=== PATIENT | male | born 1985 | race Caucasian/White ===

== ENCOUNTER 2018-12-05 13:21 | Emergency (ER) | payer BC ==
[2018-12-05] MEDS ORDERED: HYDROCODONE/ACETAMINOPHEN 5-325 MG TABLET PO ONE (15:16)
--- NOTE | 2018-12-05 15:17 | ER Document Report ---
HPI - HPI Time Seen by Provider: 12/05/18 15:12 Pain Level: 3 Notes: Patient is a 33-year-old male presented to the emergency department with complaints of dental pain. Patient reports long-standing history of dental infections due to multiple cavities. Patient reports he has been unable to get his dental issues taking care of according to him over $20,000 to fix it. - REPRODUCTIVE Reproductive: DENIES: : Past Medical History - General Information source: Patient - Social History Smoking Status: Never Smoker Frequency of alcohol use: None Drug Abuse: None Family History: Reviewed & Not Pertinent - Medical History Medical History: Negative Past Surgical History: Reports: Hx Oral Surgery - Immunizations Hx Diphtheria, Pertussis, Tetanus Vaccination: Yes Vertical Provider Document - CONSTITUTIONAL Notes: PHYSICAL EXAMINATION: GENERAL: Well-appearing, well-nourished and in no acute distress. HEAD: Atraumatic, normocephalic. EYES: Pupils equal round extraocular movements intact, conjunctiva are normal. ENT: Nares patent, poor dentition noted throughout, inflamed gums, no drainable abscess identified. NECK: Normal range of motion LUNGS: No respiratory distress Musculoskeletal: Normal range of motion NEUROLOGICAL: Normal speech, normal gait. PSYCH: Normal mood, normal affect. SKIN: Warm, Dry, normal turgor, no rashes or lesions noted. - INFECTION CONTROL TRAVEL OUTSIDE OF THE [place] IN LAST 30 DAYS: No Course - Re-evaluation Re-evalutation: Patient reports that he has been several months since he has been on a course of antibiotics for his dental pain recurrent dental infections. We will start him on a course of clindamycin due to multiple areas of erythema and increased pain. No drainable abscess was identified. Patient encouraged [facility]. - Vital Signs Vital signs: Temp Pulse Resp BP Pulse Ox 98.5 F 125 H 16 152/113 H 98 12/05/18 13:38 12/05/18 13:38 12/05/18 13:38 12/05/18 13:38 12/05/18 13:38 Discharge - Discharge Clinical Impression: Pain, dental Condition: Stable Disposition: HOME, SELF-CARE Additional Instructions: You have been seen for dental pain. It is very important that you follow-up with a dentist for definitive care. Please return if you develop fever greater than 101, swelling in your face, vomiting, difficulty breathing or swallowing, or any other symptoms that are concerning to you. For pain you should take ibuprofen 800 mg every 8 hours as needed. [facility] [phone] Prescriptions: Clindamycin HCl 300 mg PO TID #30 capsule
[2018-12-05 15:22] VITALS: BP 152/109
== END 2018-12-05 15:25 | disposition home or self-care (01) ==
LOC: ER 13:21
DX: K08.89 Other specified disorders of teeth and supporting structures (principal); K05.10 Chronic gingivitis, plaque induced
CPT/HCPCS: 99282

== ENCOUNTER 2018-12-06 15:59 | Emergency (ER) | payer BC ==
--- NOTE | 2018-12-06 16:12 | ER Document Report ---
ED Medical Screen (RME) - General Chief Complaint: Toothache Stated Complaint: FACIAL SWELLING Time Seen by Provider: 12/06/18 16:06 Mode of Arrival: Ambulatory Information source: Patient Notes: Patient returns today with left side pain. Reports he was treated for dental pain yesterday with clindamycin. He took 4 doses. Today the left side of his face is swollen. Pt reports swelling under chin. denies fever. I have greeted and performed a rapid initial assessment of this patient. A comprehensive ED assessment and evaluation of the patient, analysis of test results and completion of the medical decision making process will be conducted by additional ED providers. Dictation of this chart was performed using voice recognition software; therefore, there may be some unintended grammatical errors. TRAVEL OUTSIDE OF THE [place] IN LAST 30 DAYS: No - Related Data Allergies/Adverse Reactions: azithromycin [From Zithromax] Allergy (Verified 12/06/18 16:00) codeine [Codeine] Allergy (Verified 12/06/18 16:00) Penicillins Allergy (Verified 12/06/18 16:00) Past Medical History - Social History Chew tobacco use (# tins/day): No Frequency of alcohol use: None Drug Abuse: None Renal/ Medical History: Denies: Hx Peritoneal Dialysis Past Surgical History: Reports: Hx Oral Surgery - wisdom and tooth extraction - Immunizations Hx Diphtheria, Pertussis, Tetanus Vaccination: Yes Physical Exam - Vital signs Vitals: Temp Pulse Resp BP Pulse Ox 98.3 F 131 H 18 152/99 H 96 12/06/18 16:02 12/06/18 16:02 12/06/18 16:02 12/06/18 16:02 12/06/18 16:02 Course - Vital Signs Vital signs: Temp Pulse Resp BP Pulse Ox 98.3 F 131 H 18 152/99 H 96 12/06/18 16:02 12/06/18 16:02 12/06/18 16:02 12/06/18 16:02 12/06/18 16:02
[2018-12-06 16:33] LABS: ABSOLUTE BASOPHILS # (AUTO) 0.1 10^3/uL (0.0-0.2); ABSOLUTE EOSINOPHILS # (AUTO) 0.7 10^3/uL (0.0-0.6); ABSOLUTE MONOCYTES (AUTO) 0.7 10^3/uL (0.1-1.4); ABSOLUTE NEUT (AUTO) 9.3 10^3/uL (1.7-8.2); BASOPHILS % (AUTO) 0.5 % (0-2); EOSINOPHILS % (AUTO) 4.8 % (0-6); HEMATOCRIT 49.1 % (37.9-51.0); HEMOGLOBIN 16.5 g/dL (13.5-17.0); LYMPHOCYTES % (AUTO) 26.9 % (13-45); MEAN CORPUSCULAR HEMOGLOBIN 29.3 pg (27.0-33.4); MEAN CORPUSCULAR HGB CONC 33.7 g/dL (32.0-36.0); MEAN CORPUSCULAR VOLUME 87 fl (80-97); MONOCYTES % (AUTO) 4.7 % (3-13); PLATELET COUNT 263 10^3/uL (150-450); RED BLOOD COUNT 5.65 10^6/uL (4.35-5.55); RED CELL DISTRIBUTION WIDTH 14.1 % (11.5-14.0); SEGMENTED NEUTROPHILS % (AUTO) 63.1 % (42-78); TOTAL CELLS COUNTED % (AUTO) 100 %; WHITE BLOOD COUNT 14.8 10^3/uL (4.0-10.5)
[2018-12-06 16:47] LABS: ALANINE AMINOTRANSFERASE 23 U/L (21-72); ALBUMIN 4.5 g/dL (3.5-5.0); ALKALINE PHOSPHATASE 63 U/L (38-126); ANION GAP 11 (5-19); ASPARTATE AMINO TRANSFERASE 18 U/L (17-59); BILIRUBIN,DIRECT 0.3 mg/dL (0.0-0.4); BILIRUBIN,TOTAL 0.8 mg/dL (0.2-1.3); BLOOD UREA NITROGEN 8 mg/dL (7-20); CALCIUM 9.8 mg/dL (8.4-10.2); CARBON DIOXIDE 23 mmol/L (22-30); CHLORIDE 107 mmol/L (98-107); GLUCOSE 148 mg/dL (75-110); POTASSIUM 4.4 mmol/L (3.6-5.0); SODIUM 140.6 mmol/L (137-145); TOTAL PROTEIN 7.6 g/dL (6.3-8.2)
--- NOTE | 2018-12-06 17:30 | ER Document Report ---
ED General - General Mode of Arrival: Ambulatory TRAVEL OUTSIDE OF THE [place] IN LAST 30 DAYS: No <ROSA HANEY - Last Filed: 12/06/18 19:28> <ABBEY VALENTE - Last Filed: 12/08/18 00:07> - General Chief Complaint: Toothache Stated Complaint: FACIAL SWELLING Time Seen by Provider: 12/06/18 16:06 Notes: 33-year-old male presents to the emergency department for significant left-sided facial swelling. Patient was seen here yesterday for dental pain but did not have any facial or jaw swelling. Patient was placed on clindamycin p.o. and has taken 4 doses since being discharged yesterday. He woke up this morning to significant swelling and his mother brought him into the emergency department. He complains of significant pain of the cheek and of his gumline. Patient denies fevers or chills, is significantly tachycardic at 132. Patient is able to open his mouth and there is no evidence of airway obstruction. Patient is able to move his neck, no tongue swelling. (ROSA HANEY) - Related Data Allergies/Adverse Reactions: acetaminophen [From Percocet] Allergy (Verified 12/06/18 21:05) VOMITING azithromycin [From Zithromax] Allergy (Verified 12/06/18 16:00) codeine [Codeine] Allergy (Verified 12/06/18 16:00) oxycodone [From Percocet] Allergy (Verified 12/06/18 21:05) VOMITING Penicillins Allergy (Verified 12/06/18 16:00) Past Medical History - General Information source: Patient - Social History Smoking Status: Current Every Day Smoker Chew tobacco use (# tins/day): No Frequency of alcohol use: None Drug Abuse: None Family History: Reviewed & Not Pertinent Patient has suicidal ideation: No Patient has homicidal ideation: No Renal/ Medical History: Denies: Hx Peritoneal Dialysis Past Surgical History: Reports: Hx Oral Surgery - wisdom and tooth extraction - Immunizations Hx Diphtheria, Pertussis, Tetanus Vaccination: Yes <ROSA HANEY - Last Filed: 12/06/18 19:28> Review of Systems - Review of Systems Constitutional: See HPI EENT: See HPI Cardiovascular: No symptoms reported Respiratory: No symptoms reported Gastrointestinal: No symptoms reported Genitourinary: No symptoms reported Male Genitourinary: No symptoms reported Musculoskeletal: No symptoms reported Skin: No symptoms reported Hematologic/Lymphatic: No symptoms reported Neurological/Psychological: See HPI <ROSA HANEY - Last Filed: 12/06/18 19:28> Physical Exam <ROSA HANEY - Last Filed: 12/06/18 19:28> - Vital signs Vitals: Temp Pulse Resp BP Pulse Ox 98.3 F 131 H 18 152/99 H 96 12/06/18 16:02 12/06/18 16:02 12/06/18 16:02 12/06/18 16:02 12/06/18 16:02 - Notes Notes: PHYSICAL EXAMINATION: Reviewed vital signs and charting by RN GENERAL: Alert, interacts well. No acute distress. HEAD: Normocephalic, atraumatic. EYES: Pupils equal and round. Extraocular movements intact. ENT: Oral mucosa moist, tongue midline. Significant left-sided facial swelling of the jaw that extends into the cheek in the infraorbital area, no eye entrapment, no purulent discharge inside the mouth, patient is able to open his mouth. NECK: Full range of motion. Trachea midline. LUNGS: Clear to auscultation bilaterally, no wheezes, rales, or rhonchi. No respiratory distress. HEART: Regular rate and rhythm. No murmur ABDOMEN: soft, non-tender. No distention. Bowel sounds present EXTREMITIES: Moves all 4 extremities spontaneously. No edema, No cyanosis. PSYCH: Normal affect, normal mood. SKIN: Warm, dry, normal turgor. No rashes or lesions noted. (ROSA HANEY) Course - Laboratory Result Diagrams: 12/06/18 16:15 12/06/18 16:15 <ROSA HANEY - Last Filed: 12/06/18 19:28> - Laboratory Result Diagrams: 12/06/18 16:15 12/06/18 16:15 - Diagnostic Test Radiology reviewed: Image reviewed, Reports reviewed <ABBEY VALENTE - Last Filed: 12/08/18 00:07> - Re-evaluation Re-evalutation: 12/06/18 17:30 Overall well-appearing, afebrile, tachycardic. Leukocytosis of 14,800. CT soft tissue neck ordered. Plan is to give him in IV dose of clindamycin. 12/06/18 17:30 12/06/18 19:21 CT soft tissue face and ordered that show diffuse left-sided facial cellulitis, a subperiosteal abscess along the left upper second incisor tooth root, and multiple periapical tooth root abscesses along the alveolar ridge of the maxilla along the anterior incisors. Clindamycin 900 mg IV given here in the ER. Assessed patient with attending physician, Dr. Valente, and swelling greatly improved from initial presentation. Patient's best course of action is to take all of his paperwork and a disc of the CT and go through the [facility] ER. Patient is stable enough to go by private vehicle. At this time patient is afebrile and conversing airway is patent. He is stable for discharge. (ROSA HANEY) 12/08/18 00:04 Patient was seen and examined as requested by [facility]. Patient presented with left sided facial swelling, erythema. Imaging shows multiple root abscesses. Arvind haynes is afebrile, tolerating fluids. He did receive IV clindamycin during his ED course. We did discuss that we do not have oral maxillary surgery production superintendent here today and the infection would likely persist until the abscesses were taking care of. PHYSICAL EXAMINATION: GENERAL: Well-appearing, well-nourished and in no acute distress. HEAD: Atraumatic, normocephalic. Left-sided facial swelling, erythema. EYES: Pupils equal round extraocular movements intact, conjunctiva are normal. No pain with eye movement ENT: Nares patent NECK: Normal range of motion LUNGS: No respiratory distress Musculoskeletal: Normal range of motion NEUROLOGICAL: Normal speech, normal gait. PSYCH: Normal mood, normal affect. SKIN: Warm, Dry, normal turgor, no rashes or lesions noted. Patient and his mother has decided to go to [facility] via private vehicle for evaluation. Patient states that he has known about this problem for some time but when he saw his dentist he was told it would cost over $18,000 to have the procedure that he required performed. (ABBEY VALENTE) - Vital Signs Vital signs: Temp Pulse Resp BP Pulse Ox 98.3 F 131 H 18 142/100 H 96 12/06/18 16:02 12/06/18 16:02 12/06/18 16:02 12/06/18 21:19 12/06/18 16:02 - Laboratory Laboratory results interpreted by me: 12/06/18 12/06/18 16:15 16:15 WBC 14.8 H RBC 5.65 H RDW 14.1 H Absolute Neutrophils 9.3 H Absolute Eosinophils 0.7 H Glucose 148 H Discharge <ROSA HANEY - Last Filed: 12/06/18 19:28> <ABBEY VALENTE - Last Filed: 12/08/18 00:07> - Discharge Clinical Impression: Periapical abscess with facial involvement, Pain, dental Condition: Stable Disposition: HOME, SELF-CARE Additional Instructions: You are seen in the emergency department this evening for facial swelling and multiple periapical abscesses. You were given a dose of IV antibiotics similar to what you are taking orally. Please continue to take your oral antibiotics as prescribed. We do not have OMFS here at this hospital so you will have to go to [facility]. Please call ahead to make sure that they have an oral surgeon production superintendent. If you develop acute shortness of breath or chest pain, respiratory distress, your throat starts to close up, eye entrapment meaning you cannot move your eyeball, severe diffuse facial swelling, or any other concerning symptoms please immediately return to the emergency department.
[2018-12-06] MEDS ORDERED: HYDROCODONE/ACETAMINOPHEN 7.5-325 MG TABLET PO ONE (17:32)
[2018-12-06] MEDS ORDERED: CLINDAMYCIN 900 MG/D5W RTU 900 MG/50 ML RTUPB IV ONE (17:32)
[2018-12-06] MEDS ORDERED: ACETAMINOPHEN 325 MG TABLET PO ONE (17:33)
--- NOTE | 2018-12-06 18:02 | RADIOLOGY REPORT (SQ) ---
EXAM DESCRIPTION: CT FACIAL AREA WITH COMPLETED DATE/TIME: 12/06/2018 5:47 pm REASON FOR STUDY: left side facial swelling COMPARISON: None. TECHNIQUE: Pre and post contrast images through the facial bones and orbits windowed for bone and so ft tissue. Additional coronal and sagittal reconstructed images reviewed. All images stored on PACS . All CT scanners at this facility use dose modulation, iterative reconstruction, and/or weight based d osing when appropriate to reduce radiation dose to as low as reasonably achievable (ALARA). [facility]: Dose Right [facility]: CareDose [facility]: Dose Right [facility]: Teradose 4D [facility]: Codementor CONTRAST TYPE AND DOSE: contrast/concentration: Isovue 350.00 mg/ml; Total Contrast Delivered: 50.0 ml; Total Saline Delivered: 50.0 ml RENAL FUNCTION: None required. The patient is less than 50 years old. RADIATION DOSE: CT Rad equipment meets quality standard of care and radiation dose reduction techniq ues were employed. CTDIvol: 30.4 mGy. DLP: 1284 mGy-cm. . LIMITATIONS: None. FINDINGS: The patient has multiple dental caries throughout the upper and lower teeth. Multiple per iapical tooth root abscesses are present along the alveolar ridge of the maxilla along the anterior i ncisors. A subperiosteal abscess is present along the anterior left 2nd incisor, 10 mm in size on ax ial image 43. Surrounding pre maxillary soft tissue swelling extends up into the nasolabial fold reg ion, and along the left pre maxillary and preseptal orbital soft tissues. Normal enhancement of the left facial vein. FACIAL BONES: No fracture or bone lesion. ORBITS: Intact. No fracture. Symmetric intact globes and retroorbital soft tissues. PARANASAL SINUSES: There is mucous membrane thickening along the floor of the right and left maxillar y sinuses, likely reactive given the appearance of multiple tooth root abscesses. SOFT TISSUES: No mass or edema. No abnormal enhancement. INFERIOR BRAIN: Limited view. No acute findings. OTHER: Multiple enlarged submandibular, submental, and upper cervical lymph nodes are present IMPRESSION: Subperiosteal abscess along the left upper 2nd incisor tooth root. Diffuse left-sided f acial cellulitis without facial vein thrombosis. No left retrobulbar or orbital cellulitis. TECHNICAL DOCUMENTATION: JOB ID: [id number] Quality ID # [id number]: Final reports with documentation of one or more dose reduction techniques (e.g., Au tomated exposure control, adjustment of the mA and/or kV according to patient size, use of iterative reconstruction technique) 2010 [employer]- All Rights Reserved Reading location - IP/workstation name: [email or web address]
[2018-12-06] MEDS ORDERED: HYDROMORPHONE HCL INJ/PF 2 MG/ML AMPULE IV ONE (20:54)
[2018-12-06] MEDS ORDERED: HYDROCODONE/ACETAMINOPHEN 5-325 MG (6 TAB/ER DISP) PO PRN (20:54)
[2018-12-06 21:20] VITALS: BP 142/100
== END 2018-12-06 21:19 | disposition home or self-care (01) ==
LOC: ER 15:59
DX: K04.7 Periapical abscess without sinus (principal); K08.9 Disorder of teeth and supporting structures, unspecified; R22.0 Localized swelling, mass and lump, head; F17.200 Nicotine dependence, unspecified, uncomplicated; Z88.6 Allergy status to analgesic agent; Z88.3 Allergy status to other anti-infective agents; Z88.0 Allergy status to penicillin
CPT/HCPCS: 99283; 96375; 96365; 96366; 36415; 87040; 85025; 80053; 70487; J3490; J1170